=== PATIENT | female | born 1975 | race African-American/Black ===

== ENCOUNTER 2018-12-09 14:43 | Emergency (ER) | payer OTHER ==
--- NOTE | 2018-12-09 14:51 | PDOC ---
Rapid Medical Evaluation Time Seen by Provider: 12/09/18 14:50 Medical Evaluation: Allergies Allergy/AdvReac Type Severity Reaction Status Date / Time No Known Allergies Allergy Verified 12/09/18 14:50 12/09/18 14:51 HPI: L arm soreness x 2 months PE: No Gross deficits ORDERS: Nothing Discharge Disposition - Diagnosis Left arm pain - Referrals - Patient Instructions - Post Discharge Activity
[2018-12-09 14:55] VITALS: BP 145/74; PULSE 66; TEMP 98.9; BMI 32.5
--- NOTE | 2018-12-09 15:44 | PDOC ---
History of Present Illness - General Chief Complaint: Chest Pain Stated Complaint: CHEST PAIN Time Seen by Provider: 12/09/18 14:50 Past History - Past Medical History Allergies/Adverse Reactions: Allergies Allergy/AdvReac Type Severity Reaction Status Date / Time No Known Allergies Allergy Verified 12/09/18 14:50 Home Medications: Ambulatory Orders NK [No Known Home Medication] 01/25/16 COPD: No Kidney Stones: Yes (REMOVAL IN 2004) - Reproductive History (#): 4 Para: 1 - Immunization History Immunization Up to Date: Yes - Suicide/Smoking/Psychosocial Hx Smoking History: Never smoked Have you smoked in the past 12 months: No Hx Alcohol Use: No Drug/Substance Use Hx: No Substance Use Type: None *Physical Exam - Vital Signs Last Vital Signs Temp Pulse Resp BP Pulse Ox 98.9 F 66 18 145/74 100 12/09/18 14:53 12/09/18 14:53 12/09/18 14:53 12/09/18 14:53 12/09/18 14:53 Medical Decision Making - Medical Decision Making 12/09/18 15:56 43 yo F, no sig hx, here w/ ongoing L arm pain x 2 months, intermittent, hurts w / movement/palpation. Also reports some numbness to arm. No trauma. Had same pain over a year ago and had negative w/u including doppler of arm per pt. No CP or SOB. Denies neck pain or UE weakness See exam LUE pain Recurrent Neg w/u in past No trauma Exam today remarkable for ttp to lateral aspect of L arm w/ pain to site w/ movement EKG done at triage and unremarkable -Dc w/ OTC meds prn pain and f/u with PMD *DC/Admit/Observation/Transfer Diagnosis at time of Disposition: Left arm pain - Discharge Dispostion Disposition: HOME Condition at time of disposition: Good - Referrals - Patient Instructions Additional Instructions: The cause of your pain may be muscular Take motrin or tylenol as needed Please follow up with you PMD for further evaluation - Post Discharge Activity Forms/Work/School Notes: Back to Work
--- NOTE | 2018-12-10 11:26 | EKG ---
Test Reason : Blood Pressure : / mmHG Vent. Rate : 061 BPM Atrial Rate : 061 BPM P-R Int : 142 ms QRS Dur : 092 ms QT Int : 410 ms P-R-T Axes : 050 016 028 degrees QTc Int : 412 ms NORMAL SINUS RHYTHM MINIMAL VOLTAGE CRITERIA FOR LVH, MAY BE NORMAL VARIANT BORDERLINE ECG WHEN COMPARED WITH ECG OF 24-JAN-2015 10:22, NO SIGNIFICANT CHANGE WAS FOUND Confirmed by Gunnar Banks MD ([id number]) on 12/10/2018 11:26:10 AM Referred By: Confirmed By:Gunnar Banks MD
== END 2018-12-09 15:51 | disposition home or self-care (01) ==
LOC: JERFT 14:43
DX: M79.602 Pain in left arm (principal)
CPT/HCPCS: 93005; 93010; 99281-25

== ENCOUNTER 2020-11-11 04:59 | Day surgery (SDC) | payer OTHER ==
[2020-11-09 16:33] VITALS: BMI 32.9
[2020-11-11 09:57] VITALS: TEMP 98.2
[2020-11-11 14:48] VITALS: BP 122/66; PULSE 62
== END 2020-11-11 10:47 | disposition home or self-care (01) ==
LOC: JASU-ENDO 04:59
PROVIDERS: ATTEND Internal Medicine Gastroenterology
PROC: 0DJD8ZZ Inspection of Lower Intestinal Tract, Via Natural or Artificial Opening Endoscopic (ICD-10-PCS; principal; 2020-11-11 09:15)
DX: Z12.11 Encounter for screening for malignant neoplasm of colon (principal); Z80.0 Family history of malignant neoplasm of digestive organs

== ENCOUNTER 2022-04-14 11:06 | Emergency (ER) | payer OTHER ==
[2022-04-14 11:14] VITALS: BP 149/50; PULSE 99; RESP 18; TEMP 98.1; BMI 34.1
== END 2022-04-14 14:54 | disposition home or self-care (01) ==
LOC: JER 11:06
DX: M79.605 Pain in left leg (principal)
CPT/HCPCS: 93971-TC; 99284-25